=== PATIENT | female | born 1980 | race Caucasian/White ===

== ENCOUNTER 2019-09-01 15:19 | Emergency (ER) | payer SELFPAY ==
[~2019-09-01] VITALS: Ht 162.6 cm; Wt 79.4 kg
--- NOTE | 2019-09-01 15:22 | NUR ---
PT ZO[facility]A BLS TO ER BED 09
[2019-09-01 15:25] VITALS: BP 99/58
[2019-09-01] MEDS ORDERED: NACL 0.9% 1,000 ML IV SCH (15:44)
[2019-09-01] MEDS ORDERED: KETOROLAC 30 MG/ML VIAL IVP ONE (15:45)
[2019-09-01] MEDS ORDERED: diphenhydrAMINE 50 MG/ML VIAL IVP ONE (15:45)
[2019-09-01] MEDS ORDERED: ONDANSETRON 4 MG/2 ML VIAL IVP ONE (15:45)
[2019-09-01 16:15] LABS: BASOPHILS % (AUTO) 0.3 % (0.0-2.0); HEMATOCRIT 40.6 % (36-48); HEMOGLOBIN 13.6 g/dL (12.0-16.0); LYMPHOCYTES # (AUTO) 0.6 K/uL (2.5-16.5); LYMPHOCYTES % (AUTO) 7.9 % (20.5-51.1); MEAN CORPUSCULAR HEMOGLOBIN 30 pg (27-31); MEAN CORPUSCULAR HGB CONC 34 g/dL (33-37); MONOCYTES # (AUTO) 0.3 K/uL (0.8-1.0); MONOCYTES % (AUTO) 3.3 % (1.7-9.3); NEUTROPHILS # (AUTO) 6.8 K/uL (1.8-7.7); NEUTROPHILS % (AUTO) 88.5 % (42.2-75.2); PLATELET COUNT (AUTO) 192 K/uL (140-450); RED BLOOD CELL COUNT(AUTO) 4.56 MIL/uL (4.20-5.40); RED CELL DISTRIBUTION WIDTH 13.7 % (11.6-13.7); WHITE BLOOD COUNT (AUTO) 7.6 K/uL (4.8-10.8)
[2019-09-01] MEDS ORDERED: IBUP-2213 PO (16:17)
[2019-09-01] MEDS ORDERED: AMOX1TAB7 PO (16:17)
[2019-09-01] MEDS ORDERED: FLOV250 INH (16:17)
[2019-09-01 16:25] LABS: APPEARANCE,URINE HAZY (CLEAR); BILIRUBIN,URINE NEGATIVE (NEGATIVE); BLOOD, URINE 1+ (NEGATIVE); COLOR,URINE YELLOW (YELLOW); LEUKOCYTE ESTERASE ,URINE NEGATIVE (NEGATIVE); NITRITE, URINE NEGATIVE (NEGATIVE); UGLUCOSE NEGATIVE (NEGATIVE)
[2019-09-01 16:39] LABS: WBC,URINE 0-5 /HPF (0-5)
[2019-09-01 16:48] LABS: ANION GAP 13.8 (8-16); CARBON DIOXIDE 26.2 mmol/L (21-32); CREATININE 0.8 mg/dL (0.6-1.3)
[2019-09-01 16:52] LABS: TOTAL BILIRUBIN 0.3 mg/dL (0.0-1.0)
--- NOTE | 2019-09-01 17:00 | NUR ---
[facility].
--- NOTE | 2019-09-01 17:17 | NUR ---
C/O FLU, N/V, ABD PAIN, TEST FOR COVID ON 08/30/2019 PAIN 07/27, UA DONE HCG NEG . PT AWAKE , ALERT , AFIBRILE, AMBULATORY , SCE, CBS BLF, FLAT SOFT NABS NONTENDER. [id number],FLUTICASONE
--- NOTE | 2019-09-01 17:30 | NUR ---
pt comfortable in bed side rails up , no complaint at this time.
--- NOTE | 2019-09-01 17:32 | NUR ---
dr osman at bedside evaluating pt.
[2019-09-01 17:50] VITALS: BP 105/53
--- NOTE | 2019-09-01 17:52 | NUR ---
Patient discharged with v/s stable. Written and verbal after care instructions given and explained regarding pneumonia. Patient alert, oriented and verbalized understanding of instructions. Ambulatory with steady gait. All questions addressed prior to discharge. ID band removed. Patient advised to follow up with PMD. Rx of norco and azithromycin given. Patient educated on indication of medication including possible reaction and side effects. Opportunity to ask questions provided and answered.
== END 2019-09-01 17:52 | disposition home or self-care (01) ==
LOC: MED 15:19 → EEVIPCON 15:19 → MED 17:52
DX: B34.9 Viral infection, unspecified (principal); Z20.828 Contact with and (suspected) exposure to other viral communicable diseases; J18.9 Pneumonia, unspecified organism; Z79.899 Other long term (current) drug therapy
CPT/HCPCS: 36415; 71045; 80053; 81001; 81025; 83690; 84484; 85025; 87086; 93005; 96361; 96374; 96375; 99285; J1200; J1885; J2405; J7030; Q0092